=== PATIENT | male | born 1985 | race Hispanic/Latino ===

== ENCOUNTER 2019-03-06 08:44 | Emergency (ER) | payer SELFPAY ==
[2019-03-06 09:28] LABS: BASOPHILS % (AUTO) 0.6 % (0.0-5.0); EOSINOPHILS % (AUTO) 1.4 % (0.0-8.0); HEMATOCRIT 49.1 % (42-54); LYMPHOCYTES % (AUTO) 27.4 % (21.0-51.0); MEAN CORPUSCULAR HEMOGLOBIN 32.5 pg (27.0-33.0); MEAN CORPUSCULAR VOLUME 95.5 fL (79-99); MONOCYTES % (AUTO) 11.8 % (3.0-13.0); NEUTROPHILS % (AUTO) 58.2 % (40.0-77.0); PLATELET COUNT (AUTO) 209 K/uL (130-400); RED BLOOD CELL COUNT(AUTO) 5.14 MIL/uL (4.50-6.20); RED CELL DISTRIBUTION WIDTH 11.1 % (11.0-15.5); WHITE BLOOD COUNT (AUTO) 5.2 K/uL (4.8-10.8)
[2019-03-06 09:38] LABS: APPEARANCE,URINE Clear (CLEAR); BILIRUBIN,URINE Negative (NEGATIVE); COLOR,URINE Yellow (YELLOW); GLUCOSE, URINE (UA) Negative (NEGATIVE); KETONES,URINE Trace mg/dL (NEGATIVE); LEUKOCYTE ESTERASE ,URINE Negative (NEGATIVE); NITRATE,URINE Negative (NEGATIVE); OCCULT BLOOD,URINE Negative (NEGATIVE); PROTEIN,URINE Negative (NEGATIVE)
[2019-03-06 09:41] LABS: POTASSIUM 3.6 mmol/L (3.5-5.1)
[2019-03-06 09:42] LABS: INR 0.93 (0.85-1.15); PARTIAL THROMBOPLASTIN TIME 28.4 SEC (26.3-35.5); PROTHROMBIN TIME 9.8 SEC (9.6-11.6)
[2019-03-06 09:45] LABS: ALBUMIN 4.1 g/dL (3.5-5.0); BILIRUBIN,TOTAL 0.4 mg/dL (0.2-1.0); TOTAL PROTEIN, SERUM 8.5 g/dL (6.0-8.3)
[2019-03-06 09:54] LABS: CREATININE 1.1 mg/dL (0.5-1.5)
[2019-03-06 10:18] LABS: BACTERIA,URINE None Seen /HPF (None Seen); RBC,URINE None Seen /HPF (0-1); SQUAMOUS EPITHELIAL CELL,UR 0-2 /HPF (0-2); WBC,URINE None Seen /HPF (0-1)
[2019-03-06] MEDS ORDERED: FAMOTIDINE 20MG TAB 20 MG TAB ONE (22:03)
== END 2019-03-06 11:22 | disposition home or self-care (01) ==
LOC: EDH 08:44
DX: N50.89 Other specified disorders of the male genital organs (principal); Z72.0 Tobacco use
CPT/HCPCS: 36415; 76870; 80053; 81001; 85025; 85610; 85730

== ENCOUNTER 2019-03-06 15:48 | Inpatient (IN) | payer SELFPAY ==
[~2019-03-06] VITALS: Ht 175.3 cm; Wt 88.5 kg
[2019-03-06] MEDS ORDERED: ONDANSETRON HCL 4 MG/2 ML VIAL IV PRN (17:45)
[2019-03-06] MEDS ORDERED: LACTULOSE 20 GM/30 ML UDCUP PO PRN (17:45)
[2019-03-06] MEDS ORDERED: ACETAMINOPHEN 325 MG TAB PO PRN (17:45)
[2019-03-06 22:10] VITALS: BP 125/76
[2019-03-07 00:28] VITALS: BP 105/73
[2019-03-07 04:28] VITALS: BP 120/77
[2019-03-07 05:36] LABS: BASOPHILS % (AUTO) 0.2 % (0.0-5.0); EOSINOPHILS % (AUTO) 1.5 % (0.0-8.0); HEMATOCRIT 48.9 % (42-54); LYMPHOCYTES % (AUTO) 22.5 % (21.0-51.0); MEAN CORPUSCULAR HEMOGLOBIN 31.9 pg (27.0-33.0); MEAN CORPUSCULAR HGB CONC 33.7 g/dL (32.0-36.0); MEAN CORPUSCULAR VOLUME 94.6 fL (79-99); MONOCYTES % (AUTO) 11.9 % (3.0-13.0); NEUTROPHILS % (AUTO) 63.3 % (40.0-77.0); PLATELET COUNT (AUTO) 190 K/uL (130-400); RED BLOOD CELL COUNT(AUTO) 5.17 MIL/uL (4.50-6.20); RED CELL DISTRIBUTION WIDTH 11.1 % (11.0-15.5); WHITE BLOOD COUNT (AUTO) 4.8 K/uL (4.8-10.8)
[2019-03-07 05:53] LABS: ALBUMIN 3.6 g/dL (3.5-5.0); BILIRUBIN,TOTAL 0.8 mg/dL (0.2-1.0); CREATININE 1.2 mg/dL (0.5-1.5); POTASSIUM 3.9 mmol/L (3.5-5.1); TOTAL PROTEIN, SERUM 7.5 g/dL (6.0-8.3)
[2019-03-07 08:00] VITALS: BP 120/78
--- NOTE | 2019-03-07 08:00 | NUR ---
AM SHIFT ASSESSMENT. DENIES PAIN, STATES NO PROBLEM VOIDING BUT IS UNCOMFORTABLE WHEN WALKING AND CLOTHES ARE UNCOMFORTABLE. TESTICLES SWOLLEN AND HAS A LG NODULE ON RT.TESTE..
[2019-03-07] MEDS: FAMOTIDINE 20MG TAB 20 MG TAB PO SCH ×2 (09:24→21:10)
--- NOTE | 2019-03-07 11:30 | NUR ---
DR. CORREA IN TO SEE PT. ORDERS GIVEN AND ENTERED. PLACED ON NPO FOR CT=SCAN WITH CONTRAST.
[2019-03-07 12:00] VITALS: BP 116/77
[2019-03-07] MEDS ORDERED: DIATR MEGLU/DIATRIZOATE SODIUM 30 ML BOTTLE ONE (12:08)
[2019-03-07] MEDS ORDERED: IOHEXOL 350 MG/ML 100ML INFUS..BTL IV ONE (14:43)
[2019-03-07] MEDS ORDERED: MORPHINE SULFATE 2 MG/ML 1ML SYG IVP PRN (15:15)
[2019-03-07 16:00] VITALS: BP 119/76
--- NOTE | 2019-03-07 16:31 | NUR ---
DC PLAN MEET WITH PATIENT IN ROOM. PER PATIENT, LIVES ALONE, IS INDEPENDENT WITH ALL ADLS, DENIES USE OF PROVIDER OR DME, AND FEELS SAFE TO RETURN HOME AFTER HOSPITAL DISCHARGE. Addendum: 03/08/19 at 1632 by MORGAN SUH RN CM Amended: Links added.
--- NOTE | 2019-03-07 18:00 | NUR ---
DR KIRKLAND IN TO SEE PT. HAD A LONG DISCUSSION RE: NEEDED SX AND MAY POSSIBLE HAPPEN NEXT WEEK. ADVISED TO SEE DR. CORREA GAVE ORDER TO OBTAIN CONSENT FO SX WHICH HAS BEEN ENTERED.
[2019-03-07 20:18] VITALS: BP 121/81
[2019-03-08] VITALS (7 sets, daily range): BP systolic 116–126; BP diastolic 66–83
[2019-03-08 05:57] LABS: BASOPHILS % (AUTO) 0.4 % (0.0-5.0); EOSINOPHILS % (AUTO) 2.7 % (0.0-8.0); HEMATOCRIT 47.6 % (42-54); LYMPHOCYTES % (AUTO) 26.7 % (21.0-51.0); MEAN CORPUSCULAR HEMOGLOBIN 32.6 pg (27.0-33.0); MEAN CORPUSCULAR HGB CONC 34.7 g/dL (32.0-36.0); MEAN CORPUSCULAR VOLUME 94.1 fL (79-99); NEUTROPHILS % (AUTO) 55.8 % (40.0-77.0); PLATELET COUNT (AUTO) 200 K/uL (130-400); RED BLOOD CELL COUNT(AUTO) 5.06 MIL/uL (4.50-6.20); RED CELL DISTRIBUTION WIDTH 11.2 % (11.0-15.5); WHITE BLOOD COUNT (AUTO) 4.5 K/uL (4.8-10.8)
[2019-03-08 06:10] LABS: ALBUMIN 3.5 g/dL (3.5-5.0); BILIRUBIN,TOTAL 0.4 mg/dL (0.2-1.0); CREATININE 1.1 mg/dL (0.5-1.5); POTASSIUM 3.5 mmol/L (3.5-5.1); TOTAL PROTEIN, SERUM 7.4 g/dL (6.0-8.3)
[2019-03-08] MEDS: FAMOTIDINE 20MG TAB 20 MG TAB PO SCH ×2 (09:00→20:35)
[2019-03-09 03:00] VITALS: BP 123/70
[2019-03-09 07:59] VITALS: BP 115/77
[2019-03-09] MEDS: FAMOTIDINE 20MG TAB 20 MG TAB PO SCH ×2 (09:43→20:01)
[2019-03-09 12:00] VITALS: BP 127/77
[2019-03-09 15:23] VITALS: BP 134/72
--- NOTE | 2019-03-09 16:49 | NUR ---
CM NOTE PER JORGE A RN, PRIMARY NURSE, PATIENT TO UNDERGO RIGHT RADICAL ORCHIETOMY POSSIBLY SUNDAY 03/[address] MIRANDA.
[2019-03-09 21:14] VITALS: BP 120/87
[2019-03-10 00:44] VITALS: BP 105/76
[2019-03-10 05:50] VITALS: BP 119/83
[2019-03-10 07:30] VITALS: BP 112/72
[2019-03-10] MEDS: FAMOTIDINE 20MG TAB 20 MG TAB PO SCH ×2 (09:36→20:42)
[2019-03-10 11:00] VITALS: BP 122/79
[2019-03-10 16:00] VITALS: BP 119/82
[2019-03-10 20:22] VITALS: BP 115/74
[2019-03-11 01:06] VITALS: BP 127/84
[2019-03-11 04:39] VITALS: BP 129/75
[2019-03-11 05:44] LABS: BASOPHILS % (AUTO) 0.5 % (0.0-5.0); EOSINOPHILS % (AUTO) 2.3 % (0.0-8.0); HEMATOCRIT 45.5 % (42-54); LYMPHOCYTES % (AUTO) 27.5 % (21.0-51.0); MEAN CORPUSCULAR HEMOGLOBIN 32.2 pg (27.0-33.0); MEAN CORPUSCULAR HGB CONC 34.1 g/dL (32.0-36.0); MEAN CORPUSCULAR VOLUME 94.4 fL (79-99); MONOCYTES % (AUTO) 14.1 % (3.0-13.0); NEUTROPHILS % (AUTO) 55.1 % (40.0-77.0); PLATELET COUNT (AUTO) 186 K/uL (130-400); RED BLOOD CELL COUNT(AUTO) 4.82 MIL/uL (4.50-6.20); RED CELL DISTRIBUTION WIDTH 10.9 % (11.0-15.5); WHITE BLOOD COUNT (AUTO) 4.4 K/uL (4.8-10.8)
[2019-03-11 07:00] VITALS: BP 129/78
[2019-03-11] MEDS: FAMOTIDINE 20MG TAB 20 MG TAB PO SCH ×2 (10:02→21:00)
[2019-03-11 11:00] VITALS: BP 124/84
[2019-03-11 16:00] VITALS: BP 113/79
[2019-03-11 20:00] VITALS: BP 120/83
[2019-03-12] VITALS (25 sets, daily range): BP systolic 102–135; BP diastolic 68–89
[2019-03-12 05:09] LABS: BASOPHILS % (AUTO) 0.5 % (0.0-5.0); EOSINOPHILS % (AUTO) 1.7 % (0.0-8.0); HEMATOCRIT 49.3 % (42-54); LYMPHOCYTES % (AUTO) 24.2 % (21.0-51.0); MEAN CORPUSCULAR HEMOGLOBIN 32.5 pg (27.0-33.0); MEAN CORPUSCULAR HGB CONC 34.3 g/dL (32.0-36.0); MEAN CORPUSCULAR VOLUME 94.8 fL (79-99); MONOCYTES % (AUTO) 10.5 % (3.0-13.0); NEUTROPHILS % (AUTO) 62.6 % (40.0-77.0); PLATELET COUNT (AUTO) 212 K/uL (130-400); WHITE BLOOD COUNT (AUTO) 6.4 K/uL (4.8-10.8)
[2019-03-12 05:30] LABS: CREATININE 1.1 mg/dL (0.5-1.5); POTASSIUM 3.8 mmol/L (3.5-5.1)
[2019-03-12] MEDS ORDERED: LACTATED RINGERS 1000ML 1,000 ML IV ONE (06:49)
[2019-03-12] MEDS: CEFAZOLIN SODIUM 1 GM VIAL IVP PRN ×2 (06:52→07:15)
[2019-03-12] MEDS ORDERED: SUCCINYLCHOLINE 200MG/10ML SYR ONE (07:03)
[2019-03-12] MEDS ORDERED: MIDAZOLAM HCL 1 MG/ML 2ML VIAL ONE (07:03)
[2019-03-12] MEDS ORDERED: DEXAMETHASONE SOD PHOSPHATE 10MG/ML 1ML VIAL ONE (07:03)
[2019-03-12] MEDS ORDERED: LIDOCAINE PF 2% 5ML ABBOJECT ONE (07:03)
[2019-03-12] MEDS ORDERED: ONDANSETRON HCL 4 MG/2 ML VIAL ONE (07:04)
[2019-03-12] MEDS ORDERED: NEOSTIGMINE 5MG/5ML SYR IV ONE (07:04)
[2019-03-12] MEDS ORDERED: PROPOFOL 10 MG/ML 20ML VIAL IV ONE (07:04)
[2019-03-12] MEDS ORDERED: GLYCOPYRROLATE 1 MG/5 ML SYRINGE ONE (07:04)
[2019-03-12] MEDS ORDERED: ROCURONIUM 10MG/1ML SYR 10 MG/ML ML ONE (07:05)
[2019-03-12] MEDS ORDERED: FENTANYL CITRATE PF 50 MCG/1 ML 2ML VIAL ONE ×2 (07:05→08:41)
[2019-03-12] MEDS ORDERED: BUPIVACAINE/PF 0.25% 30ML VIAL IJ ONE (07:44)
[2019-03-12] MEDS ORDERED: BACITRACIN 28.4 GM OINT TP ONE (08:17)
[2019-03-12] MEDS: FAMOTIDINE 20MG TAB 20 MG TAB PO SCH ×2 (09:00→21:00)
[2019-03-12] MEDS ORDERED: MEPERIDINE-PF 25 MG/ML SYG ONE ×2 (09:21→09:30)
--- NOTE | 2019-03-12 10:50 | NUR ---
POSTOP BACK FROM SURGERY, PT AAOX 3 , REVIEW POSTOP . CARE AND DR. FLORES , V/S STARTED , RT GROIN DRSG DRY AND CLEAN , WITH SCROTUM SUPPORT IN PLACE, ,
[2019-03-12] MEDS ORDERED: MORPHINE SULFATE 2 MG/ML 1ML SYG IVP PRN (15:15)
[2019-03-12] MEDS ORDERED: MEPERIDINE-PF 75 MG/ML SYG IM PRN (16:15)
[2019-03-12] MEDS ORDERED: ACETAMINOPHEN-CODEINE 300/30MG TAB PO PRN (16:15)
[2019-03-12] MEDS ORDERED: ACETAMINOPHEN 325 MG TAB PO PRN (16:15)
--- NOTE | 2019-03-12 18:03 | NUR ---
Nutrition Intervention: Nutrition screen based on LOS x 6 days. Pt. S/P Orchiectomy radical right(03/12/2019). Pt. on Regular diet with good p.o. intake, per pt. Labs reviewed(Alb 3.5). LBM: 03/10/2019. SR-23, elastic. BMI: 28.8, overweight. Recommendations: 1) Rec. Low Fat diet to help promote gradual wt. loss. 2) Continue to monitor pt's nutritional status. 3) Consult RD as nutrition concerns arise. Addendum: 03/12/19 at [address] Amended: Links added.
[2019-03-12] MEDS: CEFAZOLIN SODIUM 1 GM VIAL IVP SCH (21:44)
[2019-03-13] VITALS: BP 126/72
[2019-03-13] MEDS: CEFAZOLIN SODIUM 1 GM VIAL IVP SCH ×3 (03:51→22:00)
[2019-03-13 04:00] VITALS: BP 121/68
[2019-03-13 05:53] LABS: BASOPHILS % (AUTO) 0.1 % (0.0-5.0); EOSINOPHILS % (AUTO) 0.1 % (0.0-8.0); HEMATOCRIT 40.4 % (42-54); MEAN CORPUSCULAR HEMOGLOBIN 32.5 pg (27.0-33.0); MEAN CORPUSCULAR HGB CONC 34.4 g/dL (32.0-36.0); MEAN CORPUSCULAR VOLUME 94.4 fL (79-99); MONOCYTES % (AUTO) 10.6 % (3.0-13.0); NEUTROPHILS % (AUTO) 78.8 % (40.0-77.0); PLATELET COUNT (AUTO) 174 K/uL (130-400); RED BLOOD CELL COUNT(AUTO) 4.28 MIL/uL (4.50-6.20); RED CELL DISTRIBUTION WIDTH 10.9 % (11.0-15.5); WHITE BLOOD COUNT (AUTO) 9.5 K/uL (4.8-10.8)
[2019-03-13 06:08] LABS: POTASSIUM 3.3 mmol/L (3.5-5.1)
[2019-03-13] MEDS ORDERED: POTASSIUM CHLORIDE 20MEQ/100ML 100 ML IV PRN (07:45)
[2019-03-13] MEDS ORDERED: LIDOCAINE HCL-MPF 1% 2ML VIAL IJ PRN (07:45)
[2019-03-13] MEDS ORDERED: POTASSIUM CHLORIDE 10% ELIXIR 20 MEQ/15 ML UDCUP PO PRN (07:45)
[2019-03-13 07:58] VITALS: BP 132/82
[2019-03-13] MEDS: FAMOTIDINE 20MG TAB 20 MG TAB PO SCH ×2 (09:00→21:00)
[2019-03-13] MEDS: POTASSIUM CHLORIDE 20 MEQ ERTAB PO PRN ×2 (10:37→12:54)
[2019-03-13] MEDS: SODIUM CHLORIDE 0.9% 1000ML 1,000 ML IV SCH ×2 (10:37→15:00)
[2019-03-13 12:00] VITALS: BP 120/78
[2019-03-13 16:00] VITALS: BP 117/68
[2019-03-13 19:58] VITALS: BP 126/70
[2019-03-14] VITALS: BP 118/64
[2019-03-14] MEDS: SODIUM CHLORIDE 0.9% 1000ML 1,000 ML IV SCH (01:09)
[2019-03-14 04:00] VITALS: BP 119/76
[2019-03-14 05:21] LABS: BASOPHILS % (AUTO) 0.3 % (0.0-5.0); EOSINOPHILS % (AUTO) 0.2 % (0.0-8.0); HEMATOCRIT 43.2 % (42-54); LYMPHOCYTES % (AUTO) 12.2 % (21.0-51.0); MEAN CORPUSCULAR HEMOGLOBIN 32.6 pg (27.0-33.0); MEAN CORPUSCULAR HGB CONC 34.3 g/dL (32.0-36.0); MEAN CORPUSCULAR VOLUME 95.2 fL (79-99); MONOCYTES % (AUTO) 12.7 % (3.0-13.0); NEUTROPHILS % (AUTO) 74.3 % (40.0-77.0); PLATELET COUNT (AUTO) 194 K/uL (130-400); RED BLOOD CELL COUNT(AUTO) 4.54 MIL/uL (4.50-6.20); WHITE BLOOD COUNT (AUTO) 9.7 K/uL (4.8-10.8)
[2019-03-14] MEDS: CEFAZOLIN SODIUM 1 GM VIAL IVP SCH ×2 (05:31→13:17)
[2019-03-14 05:43] LABS: POTASSIUM 4.2 mmol/L (3.5-5.1)
[2019-03-14 07:39] VITALS: BP 118/73
[2019-03-14] MEDS: FAMOTIDINE 20MG TAB 20 MG TAB PO SCH (09:00)
[2019-03-14 11:22] VITALS: BP 120/74
[2019-03-14 15:50] VITALS: BP 138/77
--- NOTE | 2019-03-14 15:59 | NUR ---
DR. MIRANDA Spoke to Dr. Conroy in AM. Stated pt OK to discharge from his point of view, to call Dr. Miranda and ask if he want any antibiotics and if he has any other orders for patient. Also, Dr. Degroot has discharge. Spoke to Francy at Dr. Miranda's office at 1100. Took inforrmation and stated she woud notify Dr. Miranda. Received call back from Francy; wanted to know if patient had any X-rays. Informed her no X-Rays. Stated she would update Dr. Miranda. Spoke to her at this time; stated she already paged Dr. Miranda; pending for him to call back.
--- NOTE | 2019-03-14 18:53 | NUR ---
DISCHARGE No call back from Dr. Ventura or his office. Dr. Conroy was informed. He gave orders for discharge. Patient was instructed to contact Dr. Ventura with any questions or concerns and he will be calling in AM for appoitments. He is aware of also following up with Dr. Degroot. Encouraged to seek medical care if there are any concerns and not to delay care. Verbalized and demonstrated understanding. Hep lock removed from left hand; IV catheter intact. Patient c/o tenderness to IV site but no other symptom. Wheelchaired down to car accompanied by family.
== END 2019-03-14 18:50 | disposition home or self-care (01) | DRG 711 ==
LOC: EDH 15:48 → EDHIP 15:49 → 3CH 21:59
PROVIDERS: ADMIT Family Medicine; ATTEND Family Medicine
PROC: 0VB90ZZ Excision of Right Testis, Open Approach (ICD-10-PCS; principal; 2019-03-12 07:15)
DX: C62.91 Malignant neoplasm of right testis, unspecified whether descended or undescended (principal); C79.9 Secondary malignant neoplasm of unspecified site; E66.3 Overweight; F12.90 Cannabis use, unspecified, uncomplicated; N50.0 Atrophy of testis; Q53.10 Unspecified undescended testicle, unilateral; Z91.19 Patient's noncompliance with other medical treatment and regimen; Z68.28 Body mass index [BMI] 28.0-28.9, adult
CPT/HCPCS: 36415; 71270; 74178; 80048; 80053; 82105; 83735; 84702; 85025; G0378; J0330; J0690; J1100; J2001; J2175; J2250; J2405; J2704; J2710; J3010; J3490; J7030; J7120; Q9963; Q9967